=== PATIENT | female | born 1940 | race Caucasian/White ===

== ENCOUNTER 2017-12-11 22:10 | Inpatient (IN) | payer OTHER, MEDICARE ==
[~2017-12-11] VITALS: Ht 165.1 cm; Wt 92.0 kg
[2017-12-12] VITALS (9 sets, daily range): BP systolic 152–202; BP diastolic 71–88
[2017-12-12 00:08] LABS: BASOPHIL % 0.7 % (0-2); PLATELET COUNT 245 x10^3mcL (130-400)
[2017-12-12 00:11] LABS: RED CELL DISTRIBUTION WIDTH 15.3 % (11.5-14.5)
[2017-12-12 00:15] LABS: CALCIUM 8.8 mg/dL (8.5-10.1); CARBON DIOXIDE 30.9 mmol/L (21-32); CHLORIDE SERUM 106 mmol/L (98-107); CREATININE SERUM 1.2 mg/dL (0.6-1.0); GLUCOSE SERUM 139 mg/dL (74-106); POTASSIUM SERUM 4.2 mmol/L (3.5-5.1); SODIUM SERUM 145 mmol/L (136-145)
[2017-12-12 00:36] LABS: ALBUMIN 3.4 g/dL (3.4-5.0); ALKALINE PHOSPHATASE 115 U/L (46-116); ALT/SGPT 19 U/L (14-59); AST/SGOT 19 U/L (15-37); BILIRUBIN TOTAL 0.4 mg/dL (0.20-1.00); TOTAL PROTEIN, SERUM 6.9 g/dL (6.4-8.2)
[2017-12-12] MEDS ORDERED: ISOSORBIDE MONO30 MG PO (02:01)
[2017-12-12] MEDS ORDERED: BACLOFEN10 MG PO (02:02)
[2017-12-12] MEDS ORDERED: ASPIR LOW81 MG PO (02:03)
[2017-12-12] MEDS ORDERED: METFORMIN HCL850 MG PO (02:04)
[2017-12-12] MEDS ORDERED: TRAMADOL HCL50 MG PO (02:05)
[2017-12-12] MEDS ORDERED: CARVEDILOL6.25 M1 PO (02:05)
[2017-12-12] MEDS ORDERED: GABAPENTIN100 M2 PO (02:06)
[2017-12-12] MEDS ORDERED: COZAAR100 MG PO (02:06)
[2017-12-12] MEDS ORDERED: MAGNESIUM OXID400 MG PO (02:07)
[2017-12-12 04:17] LABS: PHOSPHOROUS 3.1 mg/dL (2.5-4.9)
[2017-12-12 04:19] LABS: CHOLESTEROL/HDL RATIO 2.8; T3 TOTAL 0.94 ng/mL
[2017-12-12 05:39] LABS: FREE T4 1.1 ng/dL (0.76-1.46); T4(THYROXINE) 8.6 ug/dL (4.7-13.3)
[2017-12-12 17:36] LABS: microscopic required? NO
[2017-12-12 18:58] LABS: urine erythrocyte NEGATIVE (NEGATIVE)
[2017-12-13] VITALS (12 sets, daily range): BP systolic 121–169; BP diastolic 55–70
[2017-12-13 05:54] LABS: CALCIUM 8.8 mg/dL (8.5-10.1); CARBON DIOXIDE 25.9 mmol/L (21-32); CHLORIDE SERUM 106 mmol/L (98-107); CREATININE SERUM 1.2 mg/dL (0.6-1.0); GLUCOSE SERUM 160 mg/dL (74-106); SODIUM SERUM 142 mmol/L (136-145)
[2017-12-13 05:55] LABS: BASOPHIL % 0.2 % (0-2); PLATELET COUNT 241 x10^3mcL (130-400)
[2017-12-13 05:58] LABS: MAGNESIUM 1.9 mg/dL (1.8-2.4)
[2017-12-13 06:18] LABS: RED CELL DISTRIBUTION WIDTH 15.6 % (11.5-14.5)
[2017-12-14 05:35] VITALS: BP 176/70
[2017-12-14 07:09] LABS: CALCIUM 8.3 mg/dL (8.5-10.1); CARBON DIOXIDE 26.4 mmol/L (21-32); CHLORIDE SERUM 110 mmol/L (98-107); CREATININE SERUM 1.2 mg/dL (0.6-1.0); GLUCOSE SERUM 103 mg/dL (74-106); MAGNESIUM 2.2 mg/dL (1.8-2.4); PHOSPHOROUS 2.7 mg/dL (2.5-4.9); POTASSIUM SERUM 3.8 mmol/L (3.5-5.1); SODIUM SERUM 144 mmol/L (136-145)
[2017-12-14 07:40] VITALS: BP 172/74
[2017-12-14 08:03] LABS: BASOPHIL % 0.4 % (0-2); PLATELET COUNT 218 x10^3mcL (130-400); RED CELL DISTRIBUTION WIDTH 15.3 % (11.5-14.5)
[2017-12-14 09:26] VITALS: BP 155/57
[2017-12-14 10:30] VITALS: BP 118/62
[2017-12-14] MEDS ORDERED: CARVEDILOL6.25 M1 PO (10:44)
[2017-12-14] MEDS ORDERED: PLA75 PO (10:45)
[2017-12-14] MEDS ORDERED: LIPITOR20 MG PO (10:45)
[2017-12-14] MEDS ORDERED: ISOSORBIDE MONO60 MG PO (10:46)
[2017-12-14 12:11] VITALS: BP 118/62
== END 2017-12-14 14:10 | disposition home or self-care (01) | DRG 190 ==
LOC: ED 22:10 → DU 12-12 02:26
PROVIDERS: Emergency Medicine; Family Medicine; Internal Medicine Cardiovascular Disease; Student in an Organized Health Care Education/Training Program
PROC: B2111ZZ Fluoroscopy of Multiple Coronary Arteries using Low Osmolar Contrast (ICD-10-PCS; 2017-12-13)
PROC: B2151ZZ Fluoroscopy of Left Heart using Low Osmolar Contrast (ICD-10-PCS; 2017-12-13)
PROC: 4A023N7 Measurement of Cardiac Sampling and Pressure, Left Heart, Percutaneous Approach (ICD-10-PCS; principal; 2017-12-13 09:00)
DX: I21.4 Non-ST elevation (NSTEMI) myocardial infarction (principal); D68.69 Other thrombophilia; E11.42 Type 2 diabetes mellitus with diabetic polyneuropathy; E11.65 Type 2 diabetes mellitus with hyperglycemia; I42.2 Other hypertrophic cardiomyopathy; I16.0 Hypertensive urgency; E78.5 Hyperlipidemia, unspecified; M10.9 Gout, unspecified; M19.90 Unspecified osteoarthritis, unspecified site; I25.10 Atherosclerotic heart disease of native coronary artery without angina pectoris; I16.1 Hypertensive emergency; E66.9 Obesity, unspecified; Z79.82 Long term (current) use of aspirin; Z68.33 Body mass index [BMI] 33.0-33.9, adult; Z95.5 Presence of coronary angioplasty implant and graft; Z79.84 Long term (current) use of oral hypoglycemic drugs; Z88.0 Allergy status to penicillin; Z91.041 Radiographic dye allergy status; Z90.710 Acquired absence of both cervix and uterus; Z90.89 Acquired absence of other organs
CPT/HCPCS: CLHCL; 82962; 83880; 84439; C1894; J0360; J1644; J1720; J2001; J2250; J2270; J2405; J3010; J3490; J7030; J7050; J7512; Q0092; Q0163; Q9967